=== PATIENT | female | born 1945 | race Caucasian/White ===

== ENCOUNTER → 2018-07-13 | Outpatient (CLI) | payer MEDICARE, OTHER ==
[~2018-07-13] MED LIST: No meds per pt.
[2018-07-13 12:08] LABS: BASOPHILS # (AUTO) 0.03 x10^3/uL (0-0.1); BASOPHILS % (AUTO) 0 % (0-1); EOSINOPHILS # (AUTO) 0.04 x10^3/uL (0-0.4); EOSINOPHILS % (AUTO) 1 % (1-7); LYMPHOCYTES # (AUTO) 2.62 x10^3/uL (1-3.4); LYMPHOCYTES % (AUTO) 31 % (22-44); MD NO; MEAN CORPUSCULAR HEMOGLOBIN 33.3 pg (27.0-34.8); MEAN CORPUSCULAR HGB CONC 33.7 g/dL (32.4-35.8); MEAN CORPUSCULAR VOLUME 98.9 fL (80-100); MEAN PLATELET VOLUME 7.3 fL (7.4-10.4); MONOCYTES # (AUTO) 0.72 x10^3/uL (0.2-0.8); MONOCYTES % (AUTO) 9 % (2-9); NEUTROPHILS # (AUTO) 5.12 x10^3/uL (1.8-6.8); NEUTROPHILS % (AUTO) 60 % (42-75); PLATELET COUNT 237 x10^3/uL (130-400); RED BLOOD COUNT 5.17 x10^6/uL (3.82-5.3); RED CELL DISTRIBUTION WIDTH 12.6 % (9.6-15.2)
[2018-07-13 12:37] LABS: ALBUMIN 4.3 g/dL (3.4-5.0); ANION GAP 5 mmol/L (5-15); CALCIUM 9.4 mg/dL (8.5-10.1); CHLORIDE 106 mmol/L (98-107)
[2018-07-13 12:40] LABS: ALANINE AMINOTRANSFERASE 23 U/L (12-78); ALKALINE PHOSPHATASE 110 U/L (45-117); BILIRUBIN,TOTAL 1.2 mg/dL (0.2-1.0); CREATININE 0.93 mg/dL (0.55-1.02); TOTAL PROTEIN 8.6 g/dL (6.4-8.2)
== END | disposition home or self-care (01) ==
LOC: STAR 10:51
PROVIDERS: ATTEND Thoracic Surgery (Cardiothoracic Vascular Surgery)
DX: Z01.818 Encounter for other preprocedural examination (principal); I51.7 Cardiomegaly; R94.31 Abnormal electrocardiogram [ECG] [EKG]
CPT/HCPCS: 36415; 80053; 85025; 93005

== ENCOUNTER 2018-07-18 06:59 | Inpatient (IN) | payer MEDICARE, OTHER ==
[~2018-07-18] VITALS: Ht 168.9 cm; Wt 62.7 kg
[~2018-07-18 06:59] MED LIST changes: +BUPIVACAINE/PF-EPI 0.5% 1:200K ONE
[2018-07-18] MEDS ORDERED: LACTATED RINGERS 1,000 ML IV SCH ×2 (07:21→10:07)
[2018-07-18] MEDS ORDERED: SCOPOLAMINE PATCH, 1.5MG PATCH.TD72 TD ONE (07:30)
[2018-07-18] MEDS ORDERED: GABAPENTIN 300 MG CAPSULE PO ONE (07:30)
[2018-07-18] MEDS ORDERED: FENTANYL PF 100 MCG/2ML ONE ×3 (08:03→10:45)
[2018-07-18] MEDS ORDERED: MIDAZOLAM 1 MG/ML, 2ML ONE (08:04)
[2018-07-18] MEDS ORDERED: ONDANSETRON 2MG/ML, 2ML ONE (08:57)
[2018-07-18] MEDS ORDERED: SUCCINYLCHOLINE 20 MG/ML, 10ML ONE (08:57)
[2018-07-18] MEDS ORDERED: NEOSTIGMINE 1 MG/ML, 10ML ONE (08:57)
[2018-07-18] MEDS ORDERED: DEXAMETHASONE 4 MG/ML, 1ML ONE (08:57)
[2018-07-18] MEDS ORDERED: GLYCOPYRROLATE 0.2MG/1ML, 5ML ONE (08:57)
[2018-07-18] MEDS ORDERED: ROCURONIUM 10 MG/ML,10ML ONE (08:57)
[2018-07-18] MEDS ORDERED: LABETALOL 5MG/ML, 20ML IV PRN (09:30)
[2018-07-18] MEDS ORDERED: ALBUTEROL SULFATE 2.5 MG/3 ML NPPB PRN (09:30)
[2018-07-18] MEDS ORDERED: OXYcodone 5 MG/5 ML ORAL.SOL UDC PO PRN (09:30)
[2018-07-18] MEDS ORDERED: MEPERIDINE/PF 25MG/0.5ML IVPush PRN (09:30)
[2018-07-18] MEDS ORDERED: ONDANSETRON 2MG/ML, 2ML IVPush PRN ×2 (09:30→10:30)
[2018-07-18] MEDS ORDERED: METOCLOPRAMIDE 5 MG/ML, 2ML IV PRN (09:30)
[2018-07-18] MEDS ORDERED: KETOROLAC 30 MG/1 ML IV PRN (09:30)
[2018-07-18] MEDS ORDERED: PROMETHAZINE 25 MG/ML, 1ML IV PRN (09:30)
[2018-07-18] MEDS ORDERED: hydrALAzine 20 MG/ML, 1ML IV PRN (09:30)
[2018-07-18] MEDS ORDERED: SUGAMMADEX 200 MG/2 ML IVPush ONE (10:04)
[2018-07-18] MEDS: FENTANYL PF 100 MCG/2ML IV PRN ×3 (10:11→10:36)
[2018-07-18] MEDS ORDERED: HYDROmorphone 1 MG/ML, 1ML ONE (10:14)
[2018-07-18] MEDS: HYDROmorphone 1 MG/ML, 1ML IV PRN ×2 (10:14→10:27)
[2018-07-18] MEDS ORDERED: KETOROLAC 30 MG/1 ML ONE (10:22)
[2018-07-18] MEDS ORDERED: HYDROmorphone 2 MG/ML, 1ML IVPush PRN (10:30)
[2018-07-18] MEDS ORDERED: ENALAPRILAT 1.25 MG/ML, 2ML IVPush PRN (10:30)
[2018-07-18] MEDS ORDERED: hydrALAzine 20 MG/ML, 1ML IVPush PRN (10:30)
[2018-07-18] MEDS ORDERED: ACETAMINOPHEN 325 MG TABLET PO PRN (10:30)
[2018-07-18] MEDS ORDERED: LORazepam 2 MG/ML, 1ML IVPush PRN (10:30)
[2018-07-18] MEDS ORDERED: OXYcodone 5 MG/5 ML ORAL.SOL UDC ONE (10:45)
[2018-07-18 11:40] VITALS: BP 110/61
[2018-07-18] MEDS ORDERED: KETOROLAC 30 MG/1 ML IVPush PRN (12:00)
[2018-07-18] MEDS: FAMOTIDINE 20 MG/2 ML IVPush SCH (13:36)
[2018-07-18 14:40] VITALS: BP 109/58
[2018-07-18] MEDS: OXYcodone IR 5MG TABLET PO PRN (17:26)
[2018-07-18 19:45] VITALS: BP 123/61
[2018-07-19 00:43] VITALS: BP 106/57
[2018-07-19] MEDS: OXYcodone IR 5MG TABLET PO PRN ×3 (01:07→18:28)
[2018-07-19] MEDS: FAMOTIDINE 20 MG/2 ML IVPush SCH ×2 (01:14→13:34)
[2018-07-19 04:05] VITALS: BP 105/56
[2018-07-19 05:50] LABS: BASOPHILS # (AUTO) 0.04 x10^3/uL (0-0.1); BASOPHILS % (AUTO) 1 % (0-1); EOSINOPHILS # (AUTO) 0.05 x10^3/uL (0-0.4); EOSINOPHILS % (AUTO) 1 % (1-7); LYMPHOCYTES # (AUTO) 1.66 x10^3/uL (1-3.4); LYMPHOCYTES % (AUTO) 22 % (22-44); MD NO; MEAN CORPUSCULAR HEMOGLOBIN 33.4 pg (27.0-34.8); MEAN CORPUSCULAR HGB CONC 34.1 g/dL (32.4-35.8); MEAN CORPUSCULAR VOLUME 97.9 fL (80-100); MEAN PLATELET VOLUME 7.5 fL (7.4-10.4); MONOCYTES # (AUTO) 0.87 x10^3/uL (0.2-0.8); MONOCYTES % (AUTO) 11 % (2-9); NEUTROPHILS # (AUTO) 5.04 x10^3/uL (1.8-6.8); NEUTROPHILS % (AUTO) 66 % (42-75); PLATELET COUNT 176 x10^3/uL (130-400); RED BLOOD COUNT 3.78 x10^6/uL (3.82-5.3); RED CELL DISTRIBUTION WIDTH 12.7 % (9.6-15.2)
[2018-07-19 05:54] LABS: ANION GAP 3 mmol/L (5-15); CHLORIDE 106 mmol/L (98-107); CREATININE 0.77 mg/dL (0.55-1.02)
[2018-07-19 07:25] VITALS: BP 108/63
[2018-07-19] MEDS ORDERED: ENOXAPARIN 40 MG/0.4 ML SQ SCH (09:00)
[2018-07-19] MEDS ORDERED: DOCUSATE 100 MG CAPSULE PO SCH (09:30)
[2018-07-19] MEDS ORDERED: OXYC5TAB3 PO (10:52)
[2018-07-19 12:23] VITALS: BP 114/61
== END 2018-07-19 18:40 | disposition home or self-care (01) | DRG 163 ==
LOC: ORIP 06:59 → 4NOR 11:37
PROVIDERS: ADMIT Thoracic Surgery (Cardiothoracic Vascular Surgery); ATTEND Thoracic Surgery (Cardiothoracic Vascular Surgery)
PROC: 0BBF4ZZ Excision of Right Lower Lung Lobe, Percutaneous Endoscopic Approach (ICD-10-PCS; principal; 2018-07-18 09:00)
PROC: 0WP8X0Z Removal of Drainage Device from Chest Wall, External Approach (ICD-10-PCS; 2018-07-19)
DX: J98.11 Atelectasis (principal); E43 Unspecified severe protein-calorie malnutrition; J84.10 Pulmonary fibrosis, unspecified; F17.200 Nicotine dependence, unspecified, uncomplicated; Z85.3 Personal history of malignant neoplasm of breast; Z90.49 Acquired absence of other specified parts of digestive tract; Z90.710 Acquired absence of both cervix and uterus; Z88.5 Allergy status to narcotic agent; Z82.0 Family history of epilepsy and other diseases of the nervous system; Z80.3 Family history of malignant neoplasm of breast; Z80.1 Family history of malignant neoplasm of trachea, bronchus and lung; Z80.0 Family history of malignant neoplasm of digestive organs; Z80.8 Family history of malignant neoplasm of other organs or systems; Z88.8 Allergy status to other drugs, medicaments and biological substances
CPT/HCPCS: 36415; 71045; 80048; 85025; 86850; 86900; 88309; 88329; C1729; G0378; J1100; J1170; J1650; J1885; J2250; J2405; J2710; J3010; J3490; C1760; J0330; J7120